=== PATIENT | male | born 1960 | race Caucasian/White ===

== ENCOUNTER 2018-09-28 09:40 | Emergency (ER) | payer MEDICAID ==
[~2018-09-28] VITALS: Ht 167.6 cm; Wt 72.0 kg
[~2018-09-28 09:40] MED LIST: CLIN300C10 PO; FERR1TAB14 PO; Insulin Glargine SC; LISI-313 PO; METF-849 PO; TRAM50TA PO
[2018-09-28 09:43] VITALS: BP 144/66; PULSE 78; RESP 18; Ht 167.6 cm; Wt 72.0 kg
[2018-09-28] MEDS ORDERED: IBUPROFEN 600 MG TAB PO ONE (10:00)
--- NOTE | 2018-09-28 10:05 | ERD ---
ER Documentation Chief Complaint Chief Complaint pt bib friend with c/o right knee pain and swelling, skylerl fell at 8am HPI 57-year-old male presents with right knee and upper leg pain after marcowall fell onto his leg this morning at about 8 AM. He now notes significant swelling and is unable to bear weight. Denies any other area of injury. No head injury or KO. No numbness or tingling. Has not taken any medications for pain yet. ROS All systems reviewed and are negative except as per history of present illness. Medications Home Meds Active Scripts Hydrocodone/Acetaminophen (Lind 5-325 Tablet) 1 Each Tablet, 1 TAB PO Q6H PRN for PAIN, #15 TAB Prov:IVETT BEASLEY PA-C 09/28/18 Ibuprofen* (Motrin*) 600 Mg Tab, 600 MG PO Q6, #30 TAB Prov:IVETT BEASLEY PA-C 09/28/18 Tramadol Hcl* (Ultram*) 50 Mg Tablet, 50 MG PO Q6H PRN for PAIN, #14 TAB Prov:RADHA DE LA GARZA NP 09/10/18 [Insulin Glargine] 100 UNITS/ML SOLN No Conflict Check, 20 UNITS SC DAILY@1999, #1 UNIT Prov:RADHA DE LA GARZA NP 09/10/18 Clindamycin Hcl* (Clindamycin Hcl*) 300 Mg Capsule, 300 MG PO Q6 for 10 Days, #40 CAP Prov:RADHA DE LA GARZA NP 09/10/18 Metformin* (Glucophage*) 500 Mg Tab, 500 MG PO BID WITH MEALS, #60 TAB Prov:RADHA DE LA GARZA NP 09/10/18 Ferrous Fumarate/Ascorbic Acid (Anne-Sequels 65-25 mg Caplet) 1 Each Tablet.er, 1 TAB PO BID, #60 TAB Prov:RADHA DE LA GARZA NP 09/10/18 Lisinopril* (Lisinopril*) 5 Mg Tablet, 5 MG PO DAILY, #30 TAB Prov:RADHA DE LA GARZA NP 09/10/18 Allergies Allergies: Coded Allergies: No Known Allergy (Unverified , 09/08/18) PMhx/Soc History of Surgery: Yes (I&D abscess on neck 09/08) Anesthesia Reaction: No Hx Neurological Disorder: No Hx Respiratory Disorders: No Hx Cardiac Disorders: Yes (HTN) Hx Psychiatric Problems: No Hx Miscellaneous Medical Probl: No Hx Alcohol Use: No Hx Substance Use: No Hx Tobacco Use: Yes Smoking Status: Former smoker FmHx Family History: No diabetes Physical Exam Vitals Vital Signs Date Temp Pulse Resp B/P (MAP) Pulse Ox O2 O2 Flow FiO2 Time Delivery Rate 09/28/18 98.9 78 18 144/66 98 09:43 (92) Physical Exam Const: No acute distress Head: Atraumatic Eyes: Normal Conjunctiva ENT: Normal External Ears, Nose and Mouth. Neck: Full range of motion. No meningismus. Resp: Clear to auscultation bilaterally Cardio: Regular rate and rhythm, no murmurs Lower Extremity -right: Skin: No laceration Compartments: Soft Motor: Limited range of motion the knee secondary to pain and swelling Sensation: Intact to light touch Bones: Upper aspect of knee and distal femur tender, no tenderness over tibial plateau Joints: Moderate swelling over upper aspect of knee Pulses/Perfusion: 2+ DP, Capillary refill < 2 seconds Results 24 hrs Current Medications Medications Dose Sig/Pippa Start Time Status Last (Trade) Ordered Route PRN Stop Time Admin Dose Reason Admin Ibuprofen 600 mg ONCE ONCE 09/28/18 DC 09/28/18 (Motrin) PO 10:00 10:01 09/28/18 10:01 Procedures/MDM Patient has knee pain and swelling after trauma. He is neurovascularly intact. He was given Motrin for pain and x-rays ordered. X-ray does show a Subtle cortical irregularity of medial femoral condyle and adjacent small osseous/calcific density, may represent small fracture. Results reviewed with Dr. Elliott we agree he is suitable for outpatient management. He was placed in a knee immobilizer and given crutches. He was given prescription for pain medication copy of his x-ray results and outpatient referral to [facility] to follow-up with orthopedics. Patient counseled regarding my diagnostic impression and care plan. Prior to discharge all questions answered. Pt agrees with treatment plan and understands strict return precautions. Pt is instructed to follow up with primary care provider within 24-48 hours. Precautionary instructions provided including instructions to return to the ER if not improving or for any worsening or changing symptoms or concerns. Departure Diagnosis: Primary Impression: Femoral condyle fracture Condition: Stable IVETT BEASLEY PA-C Sep 28, 2018 10:05
[2018-09-28] MEDS ORDERED: IBUP-1542 PO (11:28)
[2018-09-28] MEDS ORDERED: HYDR-4011 PO (11:28)
== END 2018-09-28 12:03 | disposition home or self-care (01) ==
LOC: FTE 09:40
DX: S72.431A Displaced fracture of medial condyle of right femur, initial encounter for closed fracture (principal); I10 Essential (primary) hypertension; W20.8XXA Other cause of strike by thrown, projected or falling object, initial encounter; Y92.9 Unspecified place or not applicable; Z79.4 Long term (current) use of insulin; Z87.891 Personal history of nicotine dependence
CPT/HCPCS: 73550; 73562; Z7502; Z7610